=== PATIENT | male | born 1960 | race Caucasian/White ===

== ENCOUNTER → 2019-01-17 | Day surgery (SDC) | payer BC ==
[~2019-01-17] MED LIST: DEXAMETHASONE SOD PHOS INJ 4 MG/ML VIAL ONE; FENTANYL CITRATE/PF 100MCG/2 ML INJ ONE; IOPAMIDOL 610MG/1ML 300 MG/ML VIAL IV ONE; LEVOFLOXACIN 500MG/D5W 100ML 100 ML IV ONE; LIDOCAINE HCL 2% LOCAL INJ 5 ML SDV VIAL INJ ONE; LISINOPRIL10 MG PO; MIDAZOLAM HCL 2 MG/2 ML VIAL ONE; ONDANSETRON HCL INJ 2MG/ML 2ML 2 MG/ML VIAL ONE; PROAIR HFA INH8.5 GM INH; PROPOFOL IV EMULSION 10 MG/ML 20 ML VIAL ONE; SEVOFLURANE INHAL SOLN 250 ML PEN BTL ONE; SYMBICORT 16010.2 GM INH
--- OUTSIDE RECORDS SUMMARY | 2019-01-17 08:25 | XMS REPORT ---
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 Allergies, Adverse Reactions, Alerts This patient has no known allergies or adverse reactions. Medications This patient has no known medications. Encounters Start Date/Time End Date/Time Encounter Type Admission Type Attending [facility] Care Department Encounter ID 2019-01-03 06:50:00 2019-01-03 06:50:00 Emergency E [facility]NE [id number]
--- OUTSIDE RECORDS SUMMARY | 2019-01-17 08:25 | XMS REPORT | Clinical Summary ---
Author Author [facility] Address Unknown Phone Unavailable Care Team Providers Care Layout Inspector Name Role Phone Meir Lemus MD PCP Allergies Comments Active Allergy Reactions Severity Noted Date unknownm Amoxicillin 12/26/2018 Unknown Penicillins 12/26/2018 Medications End Date Status Medication Sig Dispensed Refills Start Date Active SYMBICORT 160-4.5 INHALE 2 6 mcg/actuation inhaler PUFFS PO BID 9 Active LISINOPRIL ORAL Take 20 mg by 0 mouth daily. 01/25/2019 Active traMADol (ULTRAM) 50 mg Take 1 tablet 15 tablet 0 tablet (50 mg total) 9 by mouth every 8 (eight) hours as needed for severe pain for up to 15 doses. Active Problems Not on file Encounters Care Team Description Date Type Specialty Jamel Fountain MD Flank pain (Primary Dx); Acute myofascial strain of lumbar region, initial encounter; Renal cyst 12/26/2018 Emergency Emergency Medicine after 01/16/2018 Social History Date Tobacco Use Types Packs/Day Years Used Current Every Day Smoker 2 Smokeless Tobacco: Never Used Alcohol Use Drinks/Week oz/Week Comments Yes 40 Cans of 24.0 beer Sex Assigned at Date Recorded Not on file Industry Job Start Date Occupation Not on file Not on file Not on file Travel End Travel History Travel Start No recent travel history available. Last Filed Vital Signs Time Taken Vital Sign Reading 12/26/2018 10:21 PM CDT Blood Pressure 143/87 12/26/2018 10:21 PM CDT Pulse 73 12/26/2018 10:21 PM CDT Temperature 36.8 C (98.3 F) 12/26/2018 10:21 PM CDT Respiratory Rate 18 12/26/2018 10:21 PM CDT Oxygen Saturation 97% - Inhaled Oxygen - Concentration 12/26/2018 7:11 PM CDT Weight 107 kg (235 lb) 12/26/2018 7:11 PM CDT Height 182.9 cm (6') 12/26/2018 7:11 PM CDT Body Mass Index 31.87 Plan of Treatment Health Maintenance Due Date Last Done Comments COLONOSCOPY SCREENING 02/25/2008 SHINGLES VACCINES (#1) 02/25/2008 INFLUENZA VACCINE 02/22/2019 Procedures Comments Procedure Name Priority Date/Time Associated Diagnosis GRAM STAIN Routine 12/26/2018 8:43 PM CDT URINE CULTURE Routine 12/26/2018 8:43 PM CDT ED REFERRAL TO [facility] Routine 12/26/2018 [facility] PHYSICIAN 8:[address] RENAL STONE PROTOCOL STAT 12/26/2018 8:25 PM CDT URINALYSIS SCREEN AND Routine 12/26/2018 MICROSCOPY, WITH REFLEX 8:18 PM CDT TO CULTURE ESTIMATED GFR STAT 12/26/2018 7:53 PM CDT LIPASE LEVEL STAT 12/26/2018 7:53 PM CDT COMPREHENSIVE METABOLIC STAT 12/26/2018 PANEL 7:53 PM CDT HC COMPLETE BLD COUNT STAT 12/26/2018 W/AUTO DIFF 7:53 PM CDT after 01/16/2018 Results * Gram stain (12/26/2018 8:43 PM CDT) Gram stain Rare WBC's [facility] result No organisms seen [facility] Comment: HOSPITAL Specimen Information Specimen Source: Urine Specimen Site: Clean catch Specimen Urine Performing Organization Address City/State/Zipcode Phone Number [facility] OF [address] [place] [address] PATHOLOGY AND GENOMIC MEDICINE [place] [facility] [address] [place] [id number] [facility] * Urine culture (12/26/2018 8:43 PM CDT) Urine culture No growth after 24 hours [facility] isolate Comment: [facility] Specimen Information HOSPITAL Specimen Source: Urine Specimen Site: Clean catch Specimen Urine Performing Organization Address City/State/Zipcode Phone Number [facility] OF [address] [place] [address] PATHOLOGY AND GENOMIC MEDICINE [place] [address] [place] [address] HOSPITAL * CT Renal Stone Protocol (12/26/2018 8:25 PM CDT) Specimen Narrative Performed At EXAMINATION:[facility] CLINICAL HISTORY:pain TECHNIQUE:Multiple axial images of the abdomen and pelvis were obtained without intravenous administration of iodinated contrast. Sagittal and coronal computerized reformatted images were also obtained. The lack of intravenous contrast reduces the sensitivity of detecting solid organ disease. CT imaging was performed with iterative reconstruction techniques and/or automated exposure control to reduce radiation dose. COMPARISON:12/19/2012 FINDINGS: Basilar atelectasis. No urinary tract stones, hydronephrosis, or perinephric stranding. Solid organ evaluation is limited without contrast. There are bilateral renal cysts, larger and confluent in the left mid-lower pole and increased in size from 2012. Definitive parenchymal lesion evaluation is precluded without contrast. The liver is diffusely fatty. Gallbladder and pancreas and spleen grossly normal. Sigmoid colon diverticulosis without evidence of diverticulitis. Normal appendix. No bowel obstruction. No free fluid or free air. Small bilateral inguinal hernias containing fat. IMPRESSION: No evidence of acute process. No stones or hydronephrosis. Fatty liver. Sigmoid diverticulosis without definite diverticulitis. Numerous cysts in the left kidney lower pole are presumed confluence of simple cysts though evaluation is very limited on noncontrast study. Suggest follow-up with ultrasound or renal mass protocol CT on nonurgent basis. [id number] Procedure Note Interface, Radiology Results Incoming - 12/26/2018 8:33 PM CDT EXAMINATION: CT RENAL STONE PROTOCOL CLINICAL HISTORY: pain TECHNIQUE: Multiple axial images of the abdomen and pelvis were obtained without intravenous administration of iodinated contrast. Sagittal and coronal computerized reformatted images were also obtained. The lack of intravenous contrast reduces the sensitivity of detecting solid organ disease. CT imaging was performed with iterative reconstruction techniques and/or automated exposure control to reduce radiation dose. COMPARISON: 12/19/2012 FINDINGS: Basilar atelectasis. No urinary tract stones, hydronephrosis, or perinephric stranding. Solid organ evaluation is limited without contrast. There are bilateral renal cysts, larger and confluent in the left mid-lower pole and increased in size from 2012. Definitive parenchymal lesion evaluation is precluded without contrast. The liver is diffusely fatty. Gallbladder and pancreas and spleen grossly normal. Sigmoid colon diverticulosis without evidence of diverticulitis. Normal appendix. No bowel obstruction. No free fluid or free air. Small bilateral inguinal hernias containing fat. IMPRESSION: No evidence of acute process. No stones or hydronephrosis. Fatty liver. Sigmoid diverticulosis without definite diverticulitis. Numerous cysts in the left kidney lower pole are presumed confluence of simple cysts though evaluation is very limited on noncontrast study. Suggest follow-up with ultrasound or renal mass protocol CT on nonurgent basis. [id number] Performing Organization Address City/State/Zipcode Phone Number [employer] [address] [place] [address] * Urinalysis screen and microscopy, with reflex to culture (12/26/2018 8:18 PM CDT) Specimen site Clean catch [facility] Color, UA Straw [facility] Appearance, UA Clear [facility] Specific 1.008 1.001 - 1.035 [facility] gravity, [facility] pH, UA 6.0 5.0 - 8.5 [facility] Protein, UA Negative Negative [facility] Glucose, UA Negative Negative [facility] Ketones, UA Negative Negative [facility] Bilirubin, UA Negative Negative [facility] Blood, UA Large (A) Negative [facility] Nitrite, UA Negative Negative [facility] Urobilinogen, Negative <2.0 [facility] Leukocyte Trace (A) Negative [facility] esterase, [facility] WBC, UA 2 0 - 1 /HPF [facility] RBC, UA 14 (H) 0 - 5 /HPF [facility] Bacteria, UA None seen None seen [facility] Yeast, UA None seen [facility] Yeast with None seen [facility] Spec[facility] Urine Performing Organization Address City/State/Zipcode Phone Number [facility] [place] [address] PATHOLOGY AND GENOMIC MEDICINE [place] [address] [address] * Estimated GFR (12/26/2018 7:53 PM CDT) [facility] Estimated GFR 72 mL/min/1.73 m2 [facility] Comment: [facility] G1 >=90 Normal or high G2 60-89Mildly decreased [id number] Mildly to moderately decreased [id number] Moderately to severely decreased G4 15-29Severely decreased G5 <15Kidney failure The eGFR was calculated using the Chronic Kidney Disease Epidemiology Collaboration (CKD-EPI) equation. Interpretation is based on recommendations of the National Kidney Foundation-Kidney Disease Outcomes Quality Initiative (NKF-KDOQI) published in 2014. Specimen Plasma specimen Performing Organization Address City/State/Zipcode Phone Number [facility] DEPARTMENT OF [address] [place] [address] PATHOLOGY AND GENOMIC MEDICINE [facility] Michael Shukri Grant [address] * CBC with platelet and differential (12/26/2018 7:53 PM CDT) [facility] WBC 11.2 (H) 4.2 - 11.0 k/uL [facility] RBC 5.05 4.04 - 5.86 m/uL [facility] HGB 17.0 13.0 - 17.3 g/dL [facility] HCT 51.3 (H) 34.0 - 45.0 % [facility] MCV 101.6 (H) 80.0 - 98.0 fL [facility] MCH 33.7 27.0 - 34.0 pg [facility] MCHC 33.1 31.5 - 36.5 g/dL [facility] RDW - SD 46.1 37.0 - 51.0 fL [facility] MPV 9.6 7.4 - 10.4 fL [facility] Platelet count 186 150 - 400 k/uL [facility] Nucleated RBC 0.00 /100 WBC [facility] Neutrophils 67.9 (H) 36.0 - 66.0 % [facility] Lymphocytes 20.4 (L) 24.0 - 44.0 % [facility] Monocytes 9.4 (H) 0.0 - 6.0 % [facility] Eosinophils 1.4 0.0 - 6.0 % [facility] Basophils 0.6 0.0 - 1.2 % [facility] Immature 0.3 0.0 - 1.0 % [facility] granulocytes [facility] Specimen Blood Performing Organization Address City/[facility] Phone Number [facility] [place] [address] PATHOLOGY AND GENOMIC MEDICINE [address] * Lipase level (12/26/2018 7:53 PM CDT) [facility] Lipase 42 13 - 60 U/L [facility] Specimen Plasma specimen Performing Organization Address City/[facility] Phone [place] [address] PATHOLOGY AND GENOMIC MEDICINE [address] * Comprehensive metabolic panel (12/26/2018 7:53 PM CDT) [facility] Sodium 138 135 - 150 mEq/L [facility] Potassium 4.3 3.5 - 5.0 mEq/L [facility] Chloride 100 98 - 112 mEq/L [facility] CO2 25 24 - 31 mmol/L [facility] Anion gap 13@ANIO 7 - 15 mEq/L [facility] BUN 21 (H) 7 - 18 mg/dL [facility] Creatinine 1.10 0.70 - 1.20 mg/dL [facility] Glucose 100 65 - 100 mg/dL [facility] Calcium 9.4 8.8 - 10.2 mg/dL [facility] Protein 7.7 6.3 - 8.3 g/dL [facility] Albumin 4.1 3.5 - 5.0 g/dL [facility] A/G ratio 1.1 0.7 - 3.8 [facility] Alkaline 67 0 - 129 U/L [facility] phosphatase [facility] AST 17 10 - 50 U/L [facility] ALT 19 5 - 50 U/L [facility] Total bilirubin 1.0 0.2 - 1.2 mg/dL [facility] Specimen Plasma specimen Performing Organization Address City/State/Zipcode Phone Number [facility] OF [address] [place] [address] PATHOLOGY AND GENOMIC MEDICINE [facility] Michael Shuk[address] [place] [id number] [place] [address] after 01/16/2018 Insurance Type Payer Benefit Subscriber ID Effective Phone Address Plan / Dates Group PPO BCBS BCBS xxxxxxxxxxxx [id number] CHOICE resent PPO/MOE GIL PPO Advance Directives Patient has advance care planning documents on file. For more information, theodora rudd contact: [facility] [address] [place] [address]
--- NOTE | 2019-01-17 11:07 | Diagnostic Imaging Report ---
EXAMINATION: PA and lateral views of the chest. COMPARISON: None CLINICAL HISTORY: Preoperative for hernia repair DISCUSSION: There are patchy consolidations in the right middle lobe and superior segment of the right lower lobe. Linear opacity in the left lung base likely reflects subsegmental atelectasis. Tortuous thoracic aorta. Normal heart size without overt pulmonary edema. No acute osseous abnormality. IMPRESSION: Patchy consolidations in the right middle lobe and superior segment right lower lobe may reflect atelectasis or multifocal pneumonia. In the absence of prior radiographs for comparison, follow-up chest radiograph in 6-8 weeks is suggested to document resolution. Alternatively, an outpatient chest CT may be considered. Signed by: Dr. Burak Hollingsworth M.D. on 01/17/2019 11:04 AM
[2019-01-17 13:30] VITALS: BP 112/66
--- NOTE | 2019-01-18 08:52 | Operative Report ---
DATE OF PROCEDURE: 01/17/2019 SURGEON: Lambert Lebron MD PREOPERATIVE DIAGNOSES: 1. Total gross painless hematuria. 2. Pain in the costovertebral angle on the right side. POSTOPERATIVE DIAGNOSES: 1. Total gross painless hematuria. 2. Pain in the costovertebral angle on the right side. OPERATIONS: 1. Cystourethroscopy. 2. Bilateral retrograde pyelogram. ANESTHETIC: General. ELECTRONIC SYSTEMS TECHNICIAN: TD Loving. INDICATIONS: Mr. Fajardo is a 58-year-old male, who presented with a chief complaint of total gross painless hematuria. CT scan performed was unremarkable. This patient was placed on the table in the lithotomy position and was prepped and draped in a sterile manner after satisfactory anesthesia. A #23-Nepali cystoscope was used and cystourethroscopy was performed and it was noted that the urethra was normal. The prostatic urethra was about 3 cm long, bilobar, partially occlusive, but very very congestive. Cystoscopy was then performed using both the right angle and the Foroblique lens and it was noted that the bladder mucosa was normal with no evidence of gross tumor, pathology, or any papillary lesions. The bladder wall was normal. Both ureteral orifices were seen and were within normal position, configuration efflux. Right retrograde pyelogram was then performed using a #8 ball-tip ureteral catheter inserted at the right ureteral orifice and 5 mL of contrast material was injected. The retrograde performed was normal. Left retrograde pyelogram was performed similarly and was normal. The bladder was drained. Cystoscope removed and the patient taken to the recovery room in satisfactory condition. Plan is for this patient is to be placed on Cipro 500 mg one twice a day for 1 month. Ultracet tablet one every 6 to 8 hours p.r.n. and was given #30. He is to return to the office in about 1 month. Lambert Lebron MD MA/SHAQU[place] /[id number]
== END | disposition home or self-care (01) ==
LOC: OR 08:23 → EDBD 11:30
PROVIDERS: ATTEND Specialist
DX: R31.0 Gross hematuria (principal); R10.813 Right lower quadrant abdominal tenderness; N42.89 Other specified disorders of prostate; J44.9 Chronic obstructive pulmonary disease, unspecified; I10 Essential (primary) hypertension; F17.210 Nicotine dependence, cigarettes, uncomplicated; Z88.0 Allergy status to penicillin
CPT/HCPCS: 52005; 71046; 74420; 93005; C1758; J1100; J1956; J2001; J2250; J2405; J2704; Q9967; J3010